=== PATIENT | male | born 1985 | race African-American/Black ===

== ENCOUNTER 2017-11-15 23:19 | Emergency (ER) | payer SELFPAY ==
[~2017-11-15] VITALS: Ht 182.9 cm; Wt 136.4 kg
[2017-11-15 23:38] VITALS: Ht 182.9 cm; Wt 136.4 kg
[2017-11-16] MEDS ORDERED: AUGMENTIN 875-11 TAB PO (01:45)
[2017-11-16] MEDS ORDERED: FLUTICASONE PRO16 GM NASAL (01:45)
[2017-11-16 02:07] VITALS: BP 136/88
== END 2017-11-16 02:08 | disposition home or self-care (01) ==
LOC: D.ER 23:19
DX: J01.90 Acute sinusitis, unspecified (principal); H92.03 Otalgia, bilateral; F17.200 Nicotine dependence, unspecified, uncomplicated